=== PATIENT | female | born 1980 | race American Indian/Alaskan Native ===

== ENCOUNTER 2017-07-23 18:17 | Emergency (ER) | payer SELFPAY ==
[2017-07-23 19:28] VITALS: BP 156/92
[2017-07-23 20:34] LABS: Hematocrit 30.7 % (30.3-42.9); Hemoglobin 9.3 gm/dl (10.1-14.3); Mean Corpuscular HGB Conc 30 % (30-34); Mean Corpuscular Volume 73 fl (79-97); Platelet Count 314 K/mm3 (140-440); Red Blood Count 4.23 M/mm3 (3.65-5.03)
[2017-07-23 20:35] LABS: Mean Corpuscular Hemoglobin 22 pg (28-32); Red Cell Distribution Width 21.1 % (13.2-15.2)
[2017-07-23 20:43] LABS: INR 1.27 (0.87-1.13)
[2017-07-23 20:44] LABS: Partial Thromboplastin Time 35.7 Sec. (24.2-36.6)
[2017-07-23 20:50] LABS: BUN/Creatinine Ratio 21; Blood Urea Nitrogen 15 mg/dL (7-17); Calcium 8.9 mg/dL (8.4-10.2); Hemolysis Index 16
== END 2017-07-24 01:45 | disposition left against medical advice (07) ==
LOC: ED 18:17
DX: I82.409 Acute embolism and thrombosis of unspecified deep veins of unspecified lower extremity (principal); Z53.21 Procedure and treatment not carried out due to patient leaving prior to being seen by health care provider
CPT/HCPCS: 36415; 80048; 85027; 85379; 85610; 85730

== ENCOUNTER 2020-10-22 18:06 | Emergency (ER) | payer MEDICAID ==
--- NOTE | 2020-10-22 21:18 | Event Note ---
ED Screening Note Date of service: 10/22/20 Time: 21:15 ED Screening Note: 40-year-old female patient (31 weeks gestation) with history of DVT's presents to the emergency department with complaints of painful bilateral lower extremity swelling starting 6 days ago. She is not currently anticoagulated. No recent fall, trauma, or injury. Patient did not experience lower extremity swelling with her previous many years ago. Patient was evaluated by fagoter earlier today. heart tones were normal. Hypertensive in triage. General: Awake, appropriately interactive, no acute distress. Neck: Supple. Full range of motion intact. Cardiovascular: Bilateral pretibial pitting lower extremity edema. Pulmonary: Dyspnea on exertion. Skin: No apparent rashes or lesions. Neurological: No facial asymmetry. Speech is clear. Follows commands. Patient is alert and oriented. Musculoskeletal: Moves all four extremities spontaneously with normal range of motion. Psych: Cooperative. Appropriate mood and affect. I have greeted and performed a focused rapid initial assessment of this patient. A comprehensive ED assessment and evaluation of the patient, analysis of all test results, and completion of the medical decision-making process will be conducted by additional ED providers. This initial assessment/diagnostic orders/clinical plan/treatment(s) is/are subject to change based on patients health status, clinical progression and re-assessment. Further treatment and workup at subsequent clinical provider's discretion. Patient/guardian urged not to elope from the ED as their condition may be serious if not clinically assessed and managed.
--- NOTE | 2020-10-22 21:43 | XRay Report ---
CHEST 1 VIEW INDICATION / CLINICAL INFORMATION: Chest pain FINDINGS: SUPPORT DEVICES: None. HEART / MEDIASTINUM: No significant abnormality. LUNGS / PLEURA: No significant pulmonary or pleural abnormality. No pneumothorax. ADDITIONAL FINDINGS: No significant additional findings. IMPRESSION: 1. No acute findings. Signer Name: Isaiah Martin MD Signed: 10/22/2020 9:38 PM Workstation Name: [id number]
--- NOTE | 2020-10-22 22:23 | Vascular Lab Report ---
DUPLEX DOPPLER LOWER EXTREMITY VEINS, BILATERAL INDICATION / CLINICAL INFORMATION: bilat pitting edema; pt is , hx DVT's. TECHNIQUE: Duplex doppler imaging was performed through the veins of both lower extremities using venous felicia efren and other maneuvers. COMPARISON: None available. FINDINGS: Right Common Femoral vein: Negative. Right Femoral vein: Negative. Right Popliteal vein: Negative. Right Calf veins: Negative. Left Common Femoral vein: Negative. Left Femoral vein: Negative. Left Popliteal vein: Negative. Left Calf veins: Negative. Additional findings: None. IMPRESSION: 1. No sonographic evidence for DVT in either lower extremity. Signer Name: Isaiah Martin MD Signed: 10/22/2020 10:18 PM Workstation Name: [id number]
[2020-10-22] MEDS ORDERED: ACETAMINOPHEN 500 MG TAB PO ONE (23:34)
--- NOTE | 2020-10-22 23:52 | Emergency Department Report ---
ED General Adult HPI - General Chief complaint: Extremity Problem,Nontraumatic PUI?: No Time Seen by Provider: 10/22/20 23:03 Source: patient Mode of arrival: Ambulatory Limitations: Physical Limitation - History of Present Illness Initial comments: Patient is a G2, P1 30-week Patient presents to the emergency department with chief complaint of swelling of both legs. The patient is G2, P1 was evaluated by OB prior to arrival to the ED this evening. Patient complains of having leg pain secondary to the swelling. Patient denies headache, blurred vision, chest pain, shortness breath, abdominal pain, vaginal bleeding, vaginal discharge. Patient states she is scheduled for section during the last week of November or the first week of December -: Gradual Location: lower extremity Radiation: non-radiation Severity scale (0 -10): 3 Quality: aching Consistency: constant Improves with: rest Worsens with: movement Associated Symptoms: denies other symptoms Treatments Prior to Arrival: none - Related Data Allergies Allergy/AdvReac Type Severity Reaction Status Date / Time ibuprofen [From Motrin] Allergy Bleeding Verified 10/22/20 19:10 codeine AdvReac Severe Anaphylaxis Verified 10/22/20 19:11 ED Review of Systems ROS: Stated complaint: Other details as noted in HPI Comment: All other systems reviewed and negative Constitutional: denies: chills, fever Eyes: denies: eye pain, eye discharge, vision change ENT: denies: ear pain, throat pain Respiratory: denies: cough, shortness of breath, wheezing Cardiovascular: denies: chest pain, palpitations Endocrine: no symptoms reported Gastrointestinal: denies: abdominal pain, nausea, diarrhea Genitourinary: denies: urgency, dysuria, discharge Musculoskeletal: other (Leg pain and swelling). denies: back pain, joint swelling, arthralgia Skin: denies: rash, lesions Neurological: denies: headache, weakness, paresthesias Psychiatric: denies: anxiety, depression Hematological/Lymphatic: denies: easy bleeding, easy bruising ED Past Medical Hx - Past Medical History Previous Medical History?: Yes Hx Hypertension: No Hx Diabetes: No Hx Deep Vein Thrombosis: No Hx Renal Disease: No Hx Sickle Cell Disease: No Hx Seizures: No Hx Asthma: No Additional medical history: DVT - Surgical History Past Surgical History?: Yes Hx Cholecystectomy: Yes Additional Surgical History: gastro bypass, - Social History Smoking Status: Never Smoker Substance Use Type: None ED Physical Exam - General Limitations: Physical Limitation General appearance: alert, in no apparent distress - Head Head exam: Present: atraumatic, normocephalic - Eye Eye exam: Present: normal appearance, PERRL, EOMI - ENT ENT exam: Present: mucous membranes moist - Neck Neck exam: Present: normal inspection - Respiratory Respiratory exam: Present: normal lung sounds bilaterally. Absent: respiratory distress - Cardiovascular Cardiovascular Exam: Present: regular rate, normal rhythm. Absent: systolic murmur, diastolic murmur, rubs, gallop - GI/Abdominal GI/Abdominal exam: Present: soft, normal bowel sounds. Absent: distended, tenderness - Extremities Exam Extremities exam: Present: other (Bilateral edema of the lower extremities) - Back Exam Back exam: Present: normal inspection - Neurological Exam Neurological exam: Present: alert, oriented X3 - Psychiatric Psychiatric exam: Present: normal affect, normal mood - Skin Skin exam: Present: warm, dry, intact, normal color. Absent: rash ED Course Vital Signs 10/22/20 10/22/20 10/22/20 18:59 19:11 20:54 Temperature 98.1 F 98.6 F Pulse Rate 82 82 87 Respiratory 24 18 Rate Blood Pressure 126/74 165/98 Blood Pressure 126/74 [Left] O2 Sat by Pulse 97 95 Oximetry 10/22/20 23:40 Temperature Pulse Rate 77 Respiratory 19 Rate Blood Pressure Blood Pressure 138/74 [Left] O2 Sat by Pulse 98 Oximetry ED Medical Decision Making - Lab Data Result diagrams: 10/22/20 23:43 10/22/20 23:43 Lab Results 10/22/20 10/22/20 10/23/20 Range/Units 23:43 23:43 00:28 WBC 4.3 L (4.5-11.0) K/mm3 RBC 3.65 (3.65-5.03) M/mm3 Hgb 10.5 (10.1-14.3) gm/dl Hct 32.6 (30.3-42.9) % MCV 89 (79-97) fl MCH 29 (28-32) pg MCHC 32 (30-34) % RDW 14.2 (13.2-15.2) % Plt Count 226 (140-440) K/mm3 Lymph % (Auto) 22.1 (13.4-35.0) % Dunn % (Auto) 9.2 H (0.0-7.3) % Eos % (Auto) 0.8 (0.0-4.3) % Baso % (Auto) 0.8 (0.0-1.8) % Lymph # (Auto) 1.0 L (1.2-5.4) K/mm3 Dunn # (Auto) 0.4 (0.0-0.8) K/mm3 Eos # (Auto) 0.0 (0.0-0.4) K/mm3 Baso # (Auto) 0.0 (0.0-0.1) K/mm3 Seg Neutrophils % 67.1 (40.0-70.0) % Seg Neutrophils # 2.9 (1.8-7.7) K/mm3 Sodium 139 (137-145) mmol/L Potassium 3.4 L (3.6-5.0) mmol/L Chloride 102.1 (98-107) mmol/L Carbon Dioxide 27 (22-30) mmol/L Anion Gap 13 mmol/L BUN 9 (7-17) mg/dL Creatinine 0.5 L (0.6-1.2) mg/dL Estimated GFR > 60 ml/min BUN/Creatinine Ratio 18 % Glucose 73 (65-100) mg/dL Calcium 8.2 L (8.4-10.2) mg/dL Magnesium 1.70 (1.7-2.3) mg/dL Total Bilirubin 0.30 (0.1-1.2) mg/dL AST 12 (5-40) units/L ALT 12 (7-56) units/L Alkaline Phosphatase 109 (35-129) units/L NT-Pro-B Natriuret Pep 23.2 (0-450) pg/mL Total Protein 6.4 (6.3-8.2) g/dL Albumin 3.4 L (3.9-5) g/dL Albumin/Globulin Ratio 1.1 % Urine Color Rosa (Yellow) Urine Turbidity Slightly-cloudy (Clear) Urine pH 5.0 (5.0-7.0) Ur Specific [place] 1.030 (1.003-1.030) Urine Protein 100 mg/dl (Negative) mg/dL Urine Glucose (UA) Neg (Negative) mg/dL Urine Ketones Tr (Negative) mg/dL Urine Blood Neg (Negative) Urine Nitrite Neg (Negative) Urine Bilirubin Neg (Negative) Urine Urobilinogen 4.0 (<2.0) mg/dL Ur Leukocyte Esterase Neg (Negative) Urine WBC (Auto) 4.0 (0.0-6.0) /HPF Urine RBC (Auto) 8.0 (0.0-6.0) /HPF U Epithel Cells (Auto) 5.0 (0-13.0) /HPF Hyaline Casts 3 /LPF Urine Mucus 3+ /HPF - Medical Decision Making Call labor and delivery and spoke to the screening/triage area and was told that the patient had monitoring done there but did not have ultrasound of the lower extremities done or blood work. Patient blood pressure was systolically in the 120s while being evaluated in the triage area of labor and delivery. The one area in BP of a systolic blood pressure in the 160s appears to be isolated Laboratory values obtained as well as imaging of the lower extremities and the chest No DVTs present on exam Discussed results with patient Critical care attestation.: If time is entered above; I have spent that time in minutes in the direct care of this critically ill patient, excluding procedure time. ED Disposition Clinical Impression: Dependent edema, Leg pain Disposition: DC-01 TO HOME OR SELFCARE Is pt being admited?: No Does the pt Need Aspirin: No Condition: Stable Instructions: Labor and Delivery General Instructions, Peripheral Edema Additional Instructions: Please return there is any vaginal discharge or bleeding. Please return if there is headaches or shortness of breath Please follow-up with your [employer] ADMINISTRATOR the next 2 to 3 days. Referrals: CARLOZ JOHNSON MD [Primary Care Provider] - 7 Days EVI RODGERS MD [Staff Physician] - 3-5 Days Forms: [facility] Discharge Summary Time of Disposition: 01:02
[2020-10-23 00:06] LABS: Basophils % (Auto) 0.8 % (0.0-1.8); Eosinophils % (Auto) 0.8 % (0.0-4.3); Hematocrit 32.6 % (30.3-42.9); Hemoglobin 10.5 gm/dl (10.1-14.3); Lymphocytes % (Auto) 22.1 % (13.4-35.0); Mean Corpuscular HGB Conc 32 % (30-34); Mean Corpuscular Volume 89 fl (79-97); Monocytes # (Auto) 0.4 K/mm3 (0.0-0.8); Monocytes % (Auto) 9.2 % (0.0-7.3); Platelet Count 226 K/mm3 (140-440); Red Blood Count 3.65 M/mm3 (3.65-5.03); Red Cell Distribution Width 14.2 % (13.2-15.2)
[2020-10-23 00:19] LABS: Alanine Aminotransferase 12 units/L (7-56); Albumin 3.4 g/dL (3.9-5); BUN/Creatinine Ratio 18; Blood Urea Nitrogen 9 mg/dL (7-17); Calcium 8.2 mg/dL (8.4-10.2); Hemolysis Index 3
[2020-10-23 00:48] LABS: Bilirubin,Urine NEG (Negative); Blood,Urine NEG (Negative); Color,Urine Amber (Yellow); Hyaline Casts,Urine 3 /LPF; Mucus,Urine 3+ /HPF
[2020-10-23 01:22] VITALS: BP 150/78
== END 2020-10-23 01:22 | disposition home or self-care (01) ==
LOC: TRG 18:06 → ED 18:06 → APU 18:07 → TRG 18:07 → APU 18:07 → EDSTATUS 20:23 → ED 10-23 01:22
DX: R60.9 Edema, unspecified (principal); M79.604 Pain in right leg; M79.605 Pain in left leg; Z90.49 Acquired absence of other specified parts of digestive tract; Z98.890 Other specified postprocedural states; Z88.8 Allergy status to other drugs, medicaments and biological substances
CPT/HCPCS: 36415; 59025; 71045; 80053; 81001; 83735; 83880; 85025; 93970